=== PATIENT | female | born 1960 | race Two or more races ===

== ENCOUNTER → 2024-01-08 | Outpatient (CLI) | payer OTHER ==
[2024-01-08 09:37] LABS: Creatinine, Urine 138.98 mg/dL (30.0-125.0)
[2024-01-08 09:39] LABS: Alanine Aminotransferase 15 U/L (7-40); Alkaline Phosphatase 109 U/L (46-116); Anion Gap 5 (5-15); BUN/Creatinine Ratio 15.1 (10.0-20.0); Blood Urea Nitrogen 18 mg/dL (9-23); Calcium 10.4 mg/dL (8.7-10.4); Carbon Dioxide 30 mmol/L (20-30); Chloride 102 mmol/L (98-107); Glucose 115 mg/dL (74-106); LDL Cholesterol 85 mg/dL (< 100); Potassium 4.3 mmol/L (3.5-5.1); Sodium 137 mmol/L (136-145); Triglycerides 103 mg/dL (< 150)
[2024-01-08 09:40] LABS: Albumin 4.3 g/dL (3.2-4.8); Aspartate Aminotransferase 16 U/L (13-40); Bilirubin, Total 0.7 mg/dL (0.2-1.0); Cholesterol 148 mg/dL (< 200); HDL Cholesterol 43 mg/dL (40-59)
[2024-01-08 09:41] LABS: Total Protein 7.5 g/dL (5.7-8.2)
== END | disposition home or self-care (01) ==
LOC: LAB 08:46
PROVIDERS: ATTEND Internal Medicine
DX: R73.03 Prediabetes (principal); E78.5 Hyperlipidemia, unspecified
CPT/HCPCS: 36415; 80053; 80061; 82043; 82570; 83036

== ENCOUNTER → 2024-01-31 | Outpatient (CLI) | payer OTHER ==
[2024-01-31 10:42] LABS: Anion Gap 7 (5-15); Carbon Dioxide 31 mmol/L (20-30); Chloride 99 mmol/L (98-107); Sodium 137 mmol/L (136-145)
[2024-01-31 10:43] LABS: Calcium 9.9 mg/dL (8.7-10.4)
[2024-01-31 10:48] LABS: Blood Urea Nitrogen 18 mg/dL (9-23); Glucose 115 mg/dL (74-106)
== END | disposition home or self-care (01) ==
LOC: LAB 09:06
PROVIDERS: ATTEND Internal Medicine
DX: N18.31 Chronic kidney disease, stage 3a (principal)
CPT/HCPCS: 36415; 80048

== ENCOUNTER 2024-03-13 02:04 | Inpatient (IN) | payer OTHER ==
[~2024-03-13] VITALS: Ht 154.9 cm; Wt 123.5 kg
[2024-03-13 02:25] LABS: Basophils # (auto) 0.1 10 ^3/uL (0-0.2); Basophils % (auto) 0.6 % (0.0-2.0); Eosinophils # (auto) 0.3 10 ^3/uL (0-0.8); Eosinophils % (auto) 3.1 % (0.0-7.0); Hematocrit 46.5 % (36.0-46.0); Hemoglobin 15.5 g/dL (12.2-16.2); Lymphocytes % (auto) 17.9 % (10.0-50.0); Mean Corpuscular Hemoglobin 29.5 pg (28.0-32.0); Mean Corpuscular Hgb Conc. 33.4 g/dL (32.0-36.0); Mean Corpuscular Volume 88.3 fL (80.0-100.0); Monocytes # (auto) 0.8 10 ^3/uL (0-1.3); Monocytes % (auto) 7.5 % (0.0-12.0); Neutrophils # (auto) 8.1 10 ^3/uL (1.6-8.6); Neutrophils % (auto) 70.9 % (37.0-80.0); Platelet Count (auto) 243 10^3/uL (140-450); Red Blood Cells 5.27 10^6/uL (4.0-5.20); Red Cell Distribution Width 15.1 % (11.8-14.3); White Blood Cell 11.4 10^3/uL (4.4-10.8)
[2024-03-13 02:38] LABS: Alanine Aminotransferase 20 U/L (7-40); Albumin 4.7 g/dL (3.2-4.8); Alkaline Phosphatase 113 U/L (46-116); Anion Gap 4 (5-15); Aspartate Aminotransferase 15 U/L (13-40); BUN/Creatinine Ratio 14.2 (10.0-20.0); Bilirubin, Total 0.4 mg/dL (0.2-1.0); Blood Urea Nitrogen 17 mg/dL (9-23); Carbon Dioxide 30 mmol/L (20-31); Chloride 106 mmol/L (98-107); Glucose 129 mg/dL (74-106); Magnesium 1.8 mg/dL (1.6-2.6); Potassium 3.7 mmol/L (3.5-5.1); Sodium 140 mmol/L (136-145)
[2024-03-13 02:39] LABS: Total Protein 7.9 g/dL (5.7-8.2)
[2024-03-13 02:41] LABS: INR 1.03 (0.9-1.15); Prothrombin Time 10.9 sec (9.3-11.8)
[2024-03-13] MEDS: ASPirin 81 mg TAB PO ONE (04:23)
[2024-03-13] MEDS: MAALOX PLUS or MAALOX 30 ML PO ONE (04:26)
[2024-03-13] MEDS: FAMOTIDINE (10MG/ML) 2ML VL IV ONE (04:54)
[2024-03-13] MEDS: ONDANSETRON HCL 4 MG/2 ML VIAL IV ONE (04:55)
[2024-03-13] MEDS ORDERED: MORPHINE SULFATE INJ 2 MG/ml SYRG IV PRN (10:15)
[2024-03-13] MEDS ORDERED: NITROGLYCERIN 0.4 MG SL TAB SL PRN (10:15)
[2024-03-13] MEDS ORDERED: HYDR12.55 PO (10:34)
[2024-03-13] MEDS ORDERED: [UNRECOGNIZED DRUG - CODE] PO (10:34)
[2024-03-13] MEDS ORDERED: ATOR40TA52 PO (10:34)
[2024-03-13] MEDS ORDERED: LISI40TA16 PO (10:34)
[2024-03-13] MEDS ORDERED: dilTIAZem HCL 180MG ER CAP PO SCH (11:26)
[2024-03-13 12:50] LABS: Urine Bacteria None Seen /hpf (None Seen)
[2024-03-13 13:20] LABS: Amphetamine Screen, Urine Neg (NEGATIVE); Barbiturate Scree,Urine Neg (NEGATIVE); Benzodiazephine Screen, Urine Neg (NEGATIVE); Cannabinoid Screen, Urine Neg (NEGATIVE); Cocaine Screen, Urine Neg (NEGATIVE); Opiate Scree,Urine Neg (NEGATIVE); Phencyclidine Screen, Urine Neg (NEGATIVE)
[2024-03-13 14:38] VITALS: PULSE 60; RESP 15; O2SAT 94
[2024-03-13 14:55] LABS: Basophils # (auto) 0 10 ^3/uL (0-0.2); Basophils % (auto) 0.4 % (0.0-2.0); Eosinophils # (auto) 0.2 10 ^3/uL (0-0.8); Eosinophils % (auto) 2.5 % (0.0-7.0); Hematocrit 43.8 % (36.0-46.0); Hemoglobin 14.4 g/dL (12.2-16.2); Lymphocytes # (auto) 1.4 10 ^3/uL (0.4-5.4); Lymphocytes % (auto) 15.2 % (10.0-50.0); Mean Corpuscular Hemoglobin 29.1 pg (28.0-32.0); Mean Corpuscular Volume 88.3 fL (80.0-100.0); Monocytes # (auto) 0.7 10 ^3/uL (0-1.3); Monocytes % (auto) 7.9 % (0.0-12.0); Neutrophils # (auto) 6.9 10 ^3/uL (1.6-8.6); Platelet Count (auto) 208 10^3/uL (140-450); Red Blood Cells 4.96 10^6/uL (4.0-5.20); Red Cell Distribution Width 14.6 % (11.8-14.3); White Blood Cell 9.4 10^3/uL (4.4-10.8)
[2024-03-13 15:03] LABS: Chloride 104 mmol/L (98-107); Potassium 3.6 mmol/L (3.5-5.1); Sodium 139 mmol/L (136-145)
[2024-03-13 15:04] LABS: Anion Gap 5 (5-15); Calcium 9.8 mg/dL (8.7-10.4); Carbon Dioxide 30 mmol/L (20-31)
[2024-03-13 15:09] LABS: Blood Urea Nitrogen 14 mg/dL (9-23); Glucose 115 mg/dL (74-106); Triglycerides 108 mg/dL (< 150)
[2024-03-13 15:10] LABS: LDL Cholesterol 91 mg/dL (< 100); Magnesium 2.1 mg/dL (1.6-2.6)
[2024-03-13 15:11] LABS: Cholesterol 150 mg/dL (< 200); HDL Cholesterol 47 mg/dL (40-59); Phosphorus 3.2 mg/dL (2.4-5.1)
[2024-03-13 15:24] LABS: Urine Blood Negative /uL (Negative); Urine Clarity Clear (Clear); Urine Color Yellow (Yellow); Urine Mucus FEW (None Seen); Urine Protein, UAD TRACE (Negative); Urine Urobilinogen Normal (Negative); Urine WBC 2 /hpf (0 - 5); Urine pH 5.5 (5.0-9.0)
[2024-03-13 18:47] VITALS: BP 144/95; PULSE 80; RESP 18; TEMP 97.3; O2SAT 98
[2024-03-13 18:49] VITALS: BP 144/95; PULSE 82; RESP 18; TEMP 97.3
[2024-03-13 20:00] VITALS: PULSE 72; PULSE 73; RESP 18; O2SAT 94
[2024-03-13] MEDS: ACETAMINOPHEN 325 MG TAB PO PRN (20:12)
[2024-03-13] MEDS ORDERED: ASPI-543 PO (20:29)
[2024-03-13] MEDS ORDERED: METF-370 PO (20:29)
[2024-03-13 21:00] VITALS: BP 151/78; PULSE 73; RESP 17; TEMP 97.9; O2SAT 94
[2024-03-13] MEDS: ATORVASTATIN 20 MG TAB PO SCH (22:06)
[2024-03-14] VITALS (8 sets, daily range): BP systolic 116–170; BP diastolic 73–93; PULSE 68–74; RESP 16–19; TEMP 97.6–98; O2SAT 90–94
[2024-03-14 06:07] LABS: Basophils # (auto) 0.1 10 ^3/uL (0-0.2); Basophils % (auto) 0.8 % (0.0-2.0); Eosinophils # (auto) 0.3 10 ^3/uL (0-0.8); Eosinophils % (auto) 3.9 % (0.0-7.0); Hematocrit 42.8 % (36.0-46.0); Hemoglobin 13.9 g/dL (12.2-16.2); Lymphocytes # (auto) 1.3 10 ^3/uL (0.4-5.4); Lymphocytes % (auto) 16.3 % (10.0-50.0); Mean Corpuscular Hgb Conc. 32.4 g/dL (32.0-36.0); Mean Corpuscular Volume 89.3 fL (80.0-100.0); Monocytes # (auto) 0.6 10 ^3/uL (0-1.3); Monocytes % (auto) 8.1 % (0.0-12.0); Neutrophils # (auto) 5.5 10 ^3/uL (1.6-8.6); Neutrophils % (auto) 70.9 % (37.0-80.0); Nucleated Red Blood Cells % 0.1 %; Platelet Count (auto) 190 10^3/uL (140-450); Red Blood Cells 4.79 10^6/uL (4.0-5.20); Red Cell Distribution Width 15.2 % (11.8-14.3); White Blood Cell 7.8 10^3/uL (4.4-10.8)
[2024-03-14 06:19] LABS: Anion Gap 4 (5-15); Carbon Dioxide 29 mmol/L (20-31); Chloride 108 mmol/L (98-107); Potassium 3.9 mmol/L (3.5-5.1); Sodium 141 mmol/L (136-145)
[2024-03-14 06:21] LABS: Calcium 9.5 mg/dL (8.7-10.4)
[2024-03-14 06:25] LABS: Glucose 104 mg/dL (74-106)
[2024-03-14 06:26] LABS: BUN/Creatinine Ratio 13.6 (10.0-20.0); Blood Urea Nitrogen 12 mg/dL (9-23)
[2024-03-14] MEDS: LISINOPRIL 20 MG TAB PO SCH (10:12)
[2024-03-14] MEDS: NIFEdipine ER 30 MG TAB PO SCH (10:15)
[2024-03-14] MEDS: hydroCHLOROthiazide 25 MG TAB PO SCH (10:15)
[2024-03-14 12:43] LABS: Erythrocyte Sedimentation Rate 14 mm/hr (0-20)
[2024-03-14] MEDS: ASPirin 81 mg TAB PO ONE (15:32)
[2024-03-14] MEDS ORDERED: PANT40T PO (16:23)
[2024-03-14] MEDS ORDERED: NIFE1TAB30 PO (16:23)
[2024-03-15] MEDS ORDERED: ASPirin 81 mg TAB PO SCH (10:00)
[2024-03-15] MEDS ORDERED: NIFEdipine ER 30 MG TAB PO SCH (10:00)
== END 2024-03-14 17:44 | disposition home or self-care (01) | DRG 313 ==
LOC: ER 02:04 → TELE 10:09 → TELE-WESTW 18:54
PROVIDERS: ADMIT Registered Nurse General Practice; ATTEND Registered Nurse General Practice
DX: R07.89 Other chest pain (principal); Z68.43 Body mass index [BMI] 50.0-59.9, adult; E78.5 Hyperlipidemia, unspecified; D72.829 Elevated white blood cell count, unspecified; I12.9 Hypertensive chronic kidney disease with stage 1 through stage 4 chronic kidney disease, or unspecified chronic kidney disease; E66.01 Morbid (severe) obesity due to excess calories; K21.9 Gastro-esophageal reflux disease without esophagitis; I70.0 Atherosclerosis of aorta; N18.2 Chronic kidney disease, stage 2 (mild); E11.22 Type 2 diabetes mellitus with diabetic chronic kidney disease; I25.10 Atherosclerotic heart disease of native coronary artery without angina pectoris; Z86.73 Personal history of transient ischemic attack (TIA), and cerebral infarction without residual deficits; Z90.710 Acquired absence of both cervix and uterus; Z82.3 Family history of stroke; Z98.51 Tubal ligation status; Z79.4 Long term (current) use of insulin; Z79.899 Other long term (current) drug therapy
CPT/HCPCS: 36415; 71045; 80048; 80053; 80061; 80307; 81001; 82306; 82607; 83036; 83735; 83880; 84100; 84443; 84484; 85025; 85610; 85652; 85730; 86141; 93005; 93306; 99291; G0378; J2405; J3490

== ENCOUNTER → 2024-04-22 | Outpatient (CLI) | payer OTHER ==
[~2024-04-22] MED LIST: ASPI-543 PO; ATOR40TA52 PO; LISI40TA16 PO; METF-370 PO; NIFE1TAB30 PO; PANT40T PO
[2024-04-22 11:00] LABS: Alanine Aminotransferase 15 U/L (7-40); Albumin 4.3 g/dL (3.2-4.8); Alkaline Phosphatase 112 U/L (46-116); Anion Gap 5 (5-15); Aspartate Aminotransferase 15 U/L (13-40); BUN/Creatinine Ratio 11.5 (10.0-20.0); Bilirubin, Total 0.9 mg/dL (0.2-1.0); Blood Urea Nitrogen 10 mg/dL (9-23); Calcium 10.4 mg/dL (8.7-10.4); Chloride 103 mmol/L (98-107); Cholesterol 154 mg/dL (< 200); Glucose 102 mg/dL (74-106); HDL Cholesterol 44 mg/dL (40-59); LDL Cholesterol 93 mg/dL (< 100); Potassium 4.3 mmol/L (3.5-5.1); Sodium 139 mmol/L (136-145); Total Protein 7.4 g/dL (5.7-8.2); Triglycerides 91 mg/dL (< 150)
[2024-04-22 11:17] LABS: Carbon Dioxide 31 mmol/L (20-31)
== END | disposition home or self-care (01) ==
LOC: LAB 09:52
PROVIDERS: ATTEND Internal Medicine
DX: E78.5 Hyperlipidemia, unspecified (principal); R73.03 Prediabetes
CPT/HCPCS: 36415; 80053; 80061; 83036

== ENCOUNTER → 2024-06-03 | Outpatient (CLI) | payer OTHER ==
[2024-06-03 10:18] LABS: Creatinine, Urine 163.42 mg/dL (30.0-125.0)
[2024-06-03 11:03] LABS: Alanine Aminotransferase 16 U/L (7-40); Alkaline Phosphatase 110 U/L (46-116); Anion Gap 6 (5-15); BUN/Creatinine Ratio 11.7 (10.0-20.0); Blood Urea Nitrogen 11 mg/dL (9-23); Calcium 10.3 mg/dL (8.7-10.4); Chloride 104 mmol/L (98-107); Potassium 4.3 mmol/L (3.5-5.1); Sodium 141 mmol/L (136-145)
[2024-06-03 11:05] LABS: Albumin 4.2 g/dL (3.2-4.8); Aspartate Aminotransferase 18 U/L (13-40); Carbon Dioxide 31 mmol/L (20-31); Glucose 109 mg/dL (74-106)
[2024-06-03 11:06] LABS: Bilirubin, Total 0.7 mg/dL (0.2-1.0); Total Protein 7.3 g/dL (5.7-8.2)
== END | disposition home or self-care (01) ==
LOC: LAB 09:27
PROVIDERS: ATTEND Internal Medicine
DX: E78.5 Hyperlipidemia, unspecified (principal); R73.03 Prediabetes
CPT/HCPCS: 36415; 80053; 82043; 82570

== ENCOUNTER → 2024-09-30 | Outpatient (CLI) | payer OTHER ==
[2024-09-30 10:03] LABS: Anion Gap 7 (5-15); Carbon Dioxide 31 mmol/L (20-31); Chloride 104 mmol/L (98-107); Potassium 4.2 mmol/L (3.5-5.1); Sodium 142 mmol/L (136-145)
[2024-09-30 10:05] LABS: Calcium 10.2 mg/dL (8.7-10.4)
[2024-09-30 10:09] LABS: Blood Urea Nitrogen 15 mg/dL (9-23); Glucose 99 mg/dL (74-106)
[2024-09-30 10:27] LABS: Creatinine, Urine 181.83 mg/dL (30.0-125.0)
== END | disposition home or self-care (01) ==
LOC: LAB 08:40
PROVIDERS: ATTEND Internal Medicine
DX: N18.2 Chronic kidney disease, stage 2 (mild) (principal); R73.03 Prediabetes
CPT/HCPCS: 36415; 80048; 82043; 82570; 83036

== ENCOUNTER 2025-02-03 10:35 | Outpatient (CLI) | payer OTHER ==
[2025-02-03 11:21] LABS: Alanine Aminotransferase 16 U/L (7-40); Albumin 4.4 g/dL (3.2-4.8); Alkaline Phosphatase 113 U/L (46-116); Anion Gap 9 (5-15); BUN/Creatinine Ratio 12.6 (10.0-20.0); Bilirubin, Total 0.8 mg/dL (0.2-1.0); Blood Urea Nitrogen 13 mg/dL (9-23); Calcium 9.5 mg/dL (8.7-10.4); Carbon Dioxide 27 mmol/L (20-31); Chloride 104 mmol/L (98-107); Glucose 92 mg/dL (74-106); Potassium 4.1 mmol/L (3.5-5.1); Sodium 140 mmol/L (136-145); Total Protein 7.9 g/dL (5.7-8.2)
[2025-02-03 11:26] LABS: Microalb/Creat Ratio, Urine 21.0
== END 2025-02-03 17:00 | disposition home or self-care (01) ==
LOC: LAB 10:35
PROVIDERS: ATTEND Internal Medicine
DX: I10 Essential (primary) hypertension (principal); R73.03 Prediabetes; Z12.11 Encounter for screening for malignant neoplasm of colon
CPT/HCPCS: 36415; 80053; 82043; 82570; 83036